=== PATIENT | female | born 1975 | race African-American/Black ===

== ENCOUNTER 2017-02-06 16:18 | Emergency (ER) | payer OTHER ==
[~2017-02-06] VITALS: Wt 116.0 kg
[~2017-02-06 16:18] MED LIST: CYCL-319 PO; HYDR-3498 PO; HYDR-906 PO; IBUP-1542 PO; NAPR-260 PO
[2017-02-06] MEDS ORDERED: ACETAMINOPHEN 500 MG TAB PO STA (18:21)
--- NOTE | 2017-02-06 19:12 | RADRPT ---
PROCEDURE: Shoulder x-ray CLINICAL INDICATION: Pain TECHNIQUE: Right shoulder 3 views COMPARISON: None FINDINGS: 3 views of the right shoulder demonstrate no displaced fracture. The humeral head articulates anato mically with the glenoid fossa. The acromioclavicular articulation is within normal limits. Bones are normally mineralized. Soft tissues are unremarkable. IMPRESSION: No acute fracture dislocation No significant degenerate change RPTAT: HH .Cecilio Morrison MD, MD Date Time Electronically viewed and signed by .Cecilio Morrison MD, on 02/06/2017 19:12 .W/
[2017-02-06] MEDS ORDERED: NAPR-260 PO (19:18)
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
== END 2017-02-06 19:34 | disposition home or self-care (01) ==
LOC: FTE 16:18
DX: S49.91XA Unspecified injury of right shoulder and upper arm, initial encounter (principal); F17.210 Nicotine dependence, cigarettes, uncomplicated; V73.6XXA Passenger on bus injured in collision with car, pick-up truck or van in traffic accident, initial encounter
CPT/HCPCS: 73030; 82962; Z7610

== ENCOUNTER 2017-11-25 19:18 | Emergency (ER) | END 2017-11-25 23:55 | disposition left against medical advice (07) ==